=== PATIENT | male | born 1960 | race Caucasian/White ===

== ENCOUNTER → 2024-02-03 13:15 | Outpatient (REF) | payer MEDICARE, OTHER, SELFPAY | LOC: RAD 13:15 | PROVIDERS: ATTENDING PHYSICIAN Surgery Vascular Surgery; FAMILY PHYSICIAN Registered Nurse | DX: I65.23 Occlusion and stenosis of bilateral carotid arteries (principal); I73.9 Peripheral vascular disease, unspecified | CPT/HCPCS: 93880; 93922; 93925 ==

== ENCOUNTER → 2024-11-28 11:19 | Outpatient (REF) | payer MEDICARE, OTHER, SELFPAY ==
[2024-11-28 12:47] LABS: HDL Cholesterol 56 mg/dl; LDL Cholesterol, Calculated 107 mg/dl; Total Cholesterol 186 mg/dl (50-199); Triglyceride 115 mg/dl (10-149); Very Low Density Lipoprotein 23 mg/dl (0-30)
== END ==
LOC: REG 11:19
PROVIDERS: ATTENDING PHYSICIAN Internal Medicine Cardiovascular Disease
DX: E78.2 Mixed hyperlipidemia (principal)
CPT/HCPCS: 36415; 80061

== ENCOUNTER → 2025-02-25 08:31 | Outpatient (REF) | payer MEDICARE, SELFPAY | LOC: RAD 08:31 | PROVIDERS: ATTENDING PHYSICIAN Surgery Vascular Surgery; FAMILY PHYSICIAN Registered Nurse; OTHER PHYSICIAN Internal Medicine Cardiovascular Disease | DX: I65.23 Occlusion and stenosis of bilateral carotid arteries (principal); I73.9 Peripheral vascular disease, unspecified | CPT/HCPCS: 93880; 93922 ==

== ENCOUNTER → 2025-09-06 15:00 | Outpatient (REF) | payer MEDICARE, OTHER, SELFPAY ==
[2025-09-06 16:17] LABS: ALT (SGPT) 16 U/L (0-50); AST (SGOT) 18 U/L (17-59); Albumin 4.3 g/dl (3.5-5.0); Alkaline Phosphatase 56 U/L (38-126); Blood Urea Nitrogen 20 mg/dl (9-20); Calcium 9.3 mg/dl (8.4-10.2); Carbon Dioxide 26 mmol/L (22-30); Chloride 104 mmol/L (98-107); Glucose 91 mg/dl (70-99); HDL Cholesterol 41 mg/dl; LDL Cholesterol, Calculated 189 mg/dl; Potassium 4.7 mmol/L (3.5-5.1); Sodium 137 mmol/L (135-145); Total Protein 7.1 g/dl (6.3-8.2); Very Low Density Lipoprotein 34 mg/dl (0-30); eGFR > 60.00
[2025-09-06 16:26] LABS: Hematocrit 42.9 % (39.0-52.0); Hemoglobin 14.0 g/dL (13.0-18.0); Mean Corp Hgb Conc. 32.6 g/dL (33.0-37.0); Mean Corpuscular Volume 95.5 fL (80.0-94.0); Nucleated Red Blood Cells % 0 % (-); Platelet Count 292 10^3/uL (130-400); Red Cell Dist. Width 12.8 % (11.5-14.5)
[2025-09-06 16:45] LABS: PSA, Total - Screen 1.00 ng/ml (0.0-4.0)
== END ==
LOC: REG 15:00
PROVIDERS: ATTENDING PHYSICIAN Registered Nurse
DX: Z00.00 Encounter for general adult medical examination without abnormal findings (principal); I11.9 Hypertensive heart disease without heart failure; E78.2 Mixed hyperlipidemia; I25.5 Ischemic cardiomyopathy; Z95.1 Presence of aortocoronary bypass graft
CPT/HCPCS: 36415; 80053; 80061; 84443; 85025; G0103